=== PATIENT | male | born 1930 ===

== ENCOUNTER 2018-08-25 21:13 | Emergency (ER) | payer SELFPAY ==
[2018-08-25 21:38] VITALS: BP 133/77
--- NOTE | 2018-08-25 22:06 | ER Document Report ---
ED Medical Screen (RME) - General Chief Complaint: Arm Problem Stated Complaint: RIGHT ARM TWITCH AND MOVEMENT Time Seen by Provider: 08/25/18 22:00 Notes: 87-year-old male coming in today because his is noticed that he has been rubbing his right arm over the past couple of days. 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 He is a poor historian secondary to his history of dementia. I have treated and performed a rapid initial assessment of this patient. A comprehensive ED assessment and evaluation of the patient, analysis of test results and completion of medical decision making process will be conducted by additional ED providers. PHYSICAL EXAMINATION: GENERAL: Well-appearing, well-nourished and in no acute distress. A&Ox4. Answers questions appropriately. LUNGS: Breath sounds clear to auscultation bilaterally and equal. No wheezes rales or rhonchi. HEART: Regular rate and rhythm without murmurs, rubs, gallops. ABDOMEN: Soft, nondistended abdomen. No guarding, no rebound. Normal bowel sounds present. No CVA tenderness bilaterally. + mild epigastric tenderness (cannot elicit thorough abd exam w/o table, however). Extremities: No cyanosis, clubbing, or edema b/l. NEUROLOGICAL: Normal speech, normal gait. PSYCH: Normal mood, normal affect. TRAVEL OUTSIDE OF THE [place] IN LAST 30 DAYS: No Physical Exam - Vital signs Vitals: Temp Pulse Resp BP Pulse Ox 98.5 F 86 16 133/77 H 98 08/25/18 21:36 08/25/18 21:36 08/25/18 21:36 08/25/18 21:36 08/25/18 21:36 Course - Vital Signs Vital signs: Temp Pulse Resp BP Pulse Ox 98.5 F 86 16 133/77 H 98 08/25/18 21:36 08/25/18 21:36 08/25/18 21:36 08/25/18 21:36 08/25/18 21:36
[2018-08-25 22:39] LABS: ABSOLUTE BASOPHILS # (AUTO) 0.1 10^3/uL (0.0-0.2); ABSOLUTE EOSINOPHILS # (AUTO) 0.1 10^3/uL (0.0-0.6); ABSOLUTE LYMPHOCYTES (AUTO) 1.3 10^3/uL (0.5-4.7); ABSOLUTE MONOCYTES (AUTO) 0.7 10^3/uL (0.1-1.4); ABSOLUTE NEUT (AUTO) 4.5 10^3/uL (1.7-8.2); BASOPHILS % (AUTO) 0.8 % (0-2); EOSINOPHILS % (AUTO) 1.2 % (0-6); HEMATOCRIT 39.7 % (37.9-51.0); HEMOGLOBIN 14.1 g/dL (13.5-17.0); LYMPHOCYTES % (AUTO) 20.2 % (13-45); MEAN CORPUSCULAR HEMOGLOBIN 31.6 pg (27.0-33.4); MEAN CORPUSCULAR HGB CONC 35.5 g/dL (32.0-36.0); MEAN CORPUSCULAR VOLUME 89 fl (80-97); MONOCYTES % (AUTO) 10.6 % (3-13); PLATELET COUNT 139 10^3/uL (150-450); RED BLOOD COUNT 4.46 10^6/uL (4.35-5.55); RED CELL DISTRIBUTION WIDTH 13.7 % (11.5-14.0); SEGMENTED NEUTROPHILS % (AUTO) 67.2 % (42-78); TOTAL CELLS COUNTED % (AUTO) 100 %; WHITE BLOOD COUNT 6.7 10^3/uL (4.0-10.5)
[2018-08-25 23:07] LABS: ALANINE AMINOTRANSFERASE 19 U/L (21-72); ALBUMIN 4.5 g/dL (3.5-5.0); ALKALINE PHOSPHATASE 93 U/L (38-126); ANION GAP 9 (5-19); ASPARTATE AMINO TRANSFERASE 25 U/L (17-59); BILIRUBIN,DIRECT 0.1 mg/dL (0.0-0.4); BILIRUBIN,TOTAL 1.1 mg/dL (0.2-1.3); BLOOD UREA NITROGEN 29 mg/dL (7-20); CALCIUM 9.2 mg/dL (8.4-10.2); CARBON DIOXIDE 34 mmol/L (22-30); CHLORIDE 101 mmol/L (98-107); GLUCOSE 104 mg/dL (75-110); POTASSIUM 3.3 mmol/L (3.6-5.0); SODIUM 143.8 mmol/L (137-145); TOTAL PROTEIN 6.7 g/dL (6.3-8.2)
== END 2018-08-26 07:16 | disposition left against medical advice (07) ==
LOC: ER 21:13
DX: F03.90 Unspecified dementia, unspecified severity, without behavioral disturbance, psychotic disturbance, mood disturbance, and anxiety (principal); Z86.718 Personal history of other venous thrombosis and embolism
CPT/HCPCS: 36415; 80053; 85025; 99281; 99283

== ENCOUNTER 2018-12-27 16:12 | Emergency (ER) | payer MEDICARE ==
--- NOTE | 2018-12-27 17:50 | ER Document Report ---
ED Medical Screen (RME) - General Chief Complaint: Flank Pain Stated Complaint: BODY PAIN Time Seen by Provider: 12/27/18 17:41 TRAVEL OUTSIDE OF THE [place] IN LAST 30 DAYS: No - HPI Notes: 12/27/18 17:47 Patient is an 88-year-old male with a history of [place], valve replacement, hypertension, Alzheimer's who presents with family complaining of right flank/right low back pain that is been present for about a week. Patient has never had pain in this area before. He is eating and drinking without difficulty. He is urinating normally and having normal bowel movements. Pain is primarily with movement. Denies drug allergies. No surgical history to his back or history of spinal abscess. No known injury. Denies CASTILLO, fever, neck pain, URI, CP, SOB, Abd pain, dysuria, urinary retention, loss control ros wel/bladder, saddle anesthesia, muscle paralysis/weakness, or rash. Pt does not want any tylenol at this time. I have treated and performed a rapid initial assessment of this patient. A comprehensive ED assessment and evaluation of the patient, analysis of test results and completion of medical decision making process will be conducted by additional ED providers. PHYSICAL EXAMINATION: GENERAL: Well-appearing, well-nourished and in no acute distress. A&O. Answers questions appropriately. LUNGS: Breath sounds clear to auscultation bilaterally and equal. No wheezes rales or rhonchi. HEART: Regular rate and rhythm, click audible Back: + tenderness Rt low back near flank. FROM. Strength intact. No foot drop. Difficult to adequately assess in WC. PSYCH: Normal mood, normal affect. - Related Data Allergies/Adverse Reactions: No Known Allergies Allergy (Verified 08/25/18 22:07) Past Medical History - Social History Chew tobacco use (# tins/day): No Frequency of alcohol use: None Drug Abuse: None Renal/ Medical History: Denies: Hx Peritoneal Dialysis
[2018-12-27 18:17] LABS: ABSOLUTE EOSINOPHILS # (AUTO) 0.1 10^3/uL (0.0-0.6); ABSOLUTE LYMPHOCYTES (AUTO) 1.2 10^3/uL (0.5-4.7); ABSOLUTE MONOCYTES (AUTO) 0.6 10^3/uL (0.1-1.4); BASOPHILS % (AUTO) 0.5 % (0-2); EOSINOPHILS % (AUTO) 1.4 % (0-6); HEMATOCRIT 38.1 % (37.9-51.0); HEMOGLOBIN 13.4 g/dL (13.5-17.0); LYMPHOCYTES % (AUTO) 17.4 % (13-45); MEAN CORPUSCULAR HEMOGLOBIN 31.3 pg (27.0-33.4); MEAN CORPUSCULAR HGB CONC 35.3 g/dL (32.0-36.0); MEAN CORPUSCULAR VOLUME 89 fl (80-97); MONOCYTES % (AUTO) 8.6 % (3-13); PLATELET COUNT 132 10^3/uL (150-450); RED CELL DISTRIBUTION WIDTH 13.7 % (11.5-14.0); SEGMENTED NEUTROPHILS % (AUTO) 72.1 % (42-78); TOTAL CELLS COUNTED % (AUTO) 100 %; WHITE BLOOD COUNT 6.9 10^3/uL (4.0-10.5)
--- NOTE | 2018-12-27 18:28 | RADIOLOGY REPORT (SQ) ---
EXAM DESCRIPTION: L SPINE WHOLE COMPLETED DATE/TIME: 12/27/2018 6:18 pm REASON FOR STUDY: Rt low back pain COMPARISON: None. NUMBER OF VIEWS: Five views including obliques. TECHNIQUE: AP, lateral, oblique, and sacral radiographic images acquired of the lumbar spine. LIMITATIONS: None. FINDINGS: MINERALIZATION: Normal. SEGMENTATION: Normal. No transitional anatomy. ALIGNMENT: Grade 1 anterolisthesis of L4 on L5. VERTEBRAE: Anterior wedge deformities of T12 and L1. DISCS: Multilevel disc space narrowing with osteophytes. Prominent anterior sclerosis at L1-L2. POSTERIOR ELEMENTS: Pedicles and facets are intact. No pars defect or posterior arch defects. Facet arthropathy is present. HARDWARE: None in the spine. PARASPINAL SOFT TISSUES: Normal. PELVIS: Intact as visualized. No fractures or worrisome bone lesions. SI joints intact. OTHER: No other significant finding. IMPRESSION: MULTILEVEL CHRONIC DEGENERATIVE CHANGES. GRADE 1 ANTEROLISTHESIS OF L 4 ON L5. ANTERIO R WEDGE DEFORMITIES OF T12 AND L1 ARE PROBABLY OLD. TECHNICAL DOCUMENTATION: JOB ID: [id number]- All Rights Reserved Reading location - IP/workstation name: [email or web address]
[2018-12-27 18:36] LABS: ANION GAP 9 (5-19); BLOOD UREA NITROGEN 26 mg/dL (7-20); CALCIUM 9.3 mg/dL (8.4-10.2); CARBON DIOXIDE 33 mmol/L (22-30); CHLORIDE 98 mmol/L (98-107); GLUCOSE 104 mg/dL (75-110); POTASSIUM 3.7 mmol/L (3.6-5.0); SODIUM 139.7 mmol/L (137-145)
--- NOTE | 2018-12-27 21:38 | RADIOLOGY REPORT (SQ) ---
EXAM DESCRIPTION: CT ABDOMEN PELVIS WITHOUT IV CONTRAST COMPLETED DATE/TME: 12/27/2018 20:43 CLINICAL HISTORY: 88 years Male right flank, mid back pain.Please comment on spine. COMPARISON: None. TECHNIQUE: Contiguous axial images obtained through the abdomen and pelvis without IV contrast. Reformatted images obtained. This exam was performed according to our department optimization program which includes automated exposure control, adjustment of the mA and/or kv according to patient size and/or use of iterative reconstruction technique. FINDINGS: Low-attenuation lesion in the dome of the liver consistent with a small cyst measuring 1.2 cm. The spleen and pancreas appear unremarkable. No adrenal masses. The kidneys appear unremarkable. No hydronephrosis. The gallbladder is present with gallstones noted. No surrounding inflammatory changes are seen. No aneurysmal dilatation of the aorta. No bowel obstruction. The appendix is unremarkable. No significant free fluid noted. Multilevel degenerative change in the thoracic and the lumbar spine. Grade 1 anterolisthesis of L4 on L5. Recommend endplate changes at L1 and L2. Moderate compression at T11 and T12 which are age indeterminant. No surrounding inflammatory changes are present. IMPRESSION: Compression fractures at T11 and T12 which are age indeterminant No additional evidence of acute process Cholelithiasis
[2018-12-27] MEDS ORDERED: LIDOCAINE 5% (700 MG) TRANSDERMAL ADH..PATCH TP ONE (23:07)
[2018-12-27] MEDS ORDERED: ACETAMINOPHEN 325 MG TABLET PO ONE (23:07)
--- NOTE | 2018-12-27 23:09 | ER Document Report ---
ED General - General Chief Complaint: Flank Pain Stated Complaint: BODY PAIN Time Seen by Provider: 12/27/18 17:41 Cannot obtain history due to: Dementia Notes: Patient is an 88-year-old male with past medical history of dementia who presents with right low back pain. Patient is a very poor historian, at bedside does provide majority of history. Patient states that the pain is a throbbing, aching, constant discomfort to his right mid and low back. Symptoms have been ongoing for at least the past several weeks, not new or different today. Went to a chiropractor and was told that he needed to be sure that he did not have a "kidney problem" prior to receiving an adjustment. Has not seen his primary care doctor regarding today's concerns. Denies any urinary retention, bowel or bladder incontinence, inability to ambulate, focal weakness or numbness. No falls or injuries to the back. Denies history of similar symptoms in the past. TRAVEL OUTSIDE OF THE [place] IN LAST 30 DAYS: No - Related Data Allergies/Adverse Reactions: No Known Allergies Allergy (Verified 08/25/18 22:07) Past Medical History - General Information source: Patient, Relative - Social History Smoking Status: Never Smoker Chew tobacco use (# tins/day): No Frequency of alcohol use: None Drug Abuse: None Lives with: Spouse/Significant other Family History: Reviewed & Not Pertinent Patient has suicidal ideation: No Patient has homicidal ideation: No Renal/ Medical History: Denies: Hx Peritoneal Dialysis Review of Systems - Review of Systems Notes: Constitutional: Negative for fever. HENT: Negative for sore throat. Eyes: Negative for visual changes. Cardiovascular: Negative for chest pain. Respiratory: Negative for shortness of breath. Gastrointestinal: Negative for abdominal pain, vomiting or diarrhea. Genitourinary: Negative for dysuria. Musculoskeletal: Positive for right low and mid back pain Skin: Negative for rash. Neurological: Negative for headaches, weakness or numbness. 10 point ROS negative except as marked above and in HPI. Physical Exam - Vital signs Vitals: Temp Pulse Resp BP Pulse Ox 98.7 F 84 16 146/88 H 100 12/27/18 17:58 12/27/18 17:58 12/27/18 17:58 12/27/18 17:58 12/27/18 17:58 Interpretation: Normal Notes: PHYSICAL EXAMINATION: GENERAL: Well-appearing, well-nourished and in no acute distress. HEAD: Atraumatic, normocephalic. EYES: Pupils equal round and reactive to light, extraocular movements intact, sclera anicteric, conjunctiva are normal. ENT: nares patent, oropharynx clear without exudates. Moist mucous membranes. NECK: Normal range of motion, supple without lymphadenopathy LUNGS: Breath sounds clear to auscultation bilaterally and equal. No wheezes rales or rhonchi. HEART: Regular rate and rhythm without murmurs ABDOMEN: Soft, nontender, normoactive bowel sounds. No guarding, no rebound. No masses appreciated. EXTREMITIES: Normal range of motion, no pitting or edema. No cyanosis. Back: Slight tenderness to palpation of the low thoracic spine and kinsey-spinous muscles on the right. NEUROLOGICAL: 5 out of 5 strength both distally and proximally bilateral lower extremities. 2+ patellar reflexes bilaterally. No clonus. Sensation grossly intact in the bilateral lower extremities. Patient is able to ambulate without difficulty. PSYCH: Normal mood, normal affect. SKIN: Warm, Dry, normal turgor, no rashes or lesions noted. Course - Re-evaluation Re-evalutation: 12/27/18 23:09 Patient presents with 24 to 48 hours of right flank and right mid back pain. At the time of my evaluation does not have significant complaints of pain. Does have some point tenderness over the low thoracic spine as well as the right flank. Abdominal exam is benign. No red flag symptoms of low back pain. CT s can abdomen pelvis does not demonstrate any evidence of nephrolithiasis or aortic pathology. Does demonstrate age-indeterminate compression fractures of the low thoracic spine which may be contributing to the patient's pain. No focal neurologic deficits on exam. Patellar and ankle reflexes intact. At this time will discharge with return precautions and follow-up recommendations. Verbal discharge instructions given a the bedside and opportunity for questions given. Medication warnings reviewed. Patient is in agreement with this plan and has verbalized understanding of return precautions and the need for primary care follow-up in the next 24-72 hours. - Vital Signs Vital signs: Temp Pulse Resp BP Pulse Ox 98.0 F 64 20 140/85 H 99 12/27/18 23:16 12/27/18 23:16 12/27/18 23:16 12/27/18 23:16 12/27/18 23:16 - Laboratory Result Diagrams: 12/27/18 18:00 12/27/18 18:00 Laboratory results interpreted by me: 12/27/18 12/27/18 18:00 18:00 RBC 4.30 L Hgb 13.4 L Plt Count 132 L Carbon Dioxide 33 H BUN 26 H - Diagnostic Test Radiology reviewed: Reports reviewed Discharge - Discharge Clinical Impression: Mid back pain on right side Compression fx, thoracic spine Qualifiers: Encounter type: initial encounter Thoracic vertebra fracture level: unspecified thoracic vertebra Qualified Code(s): S22.000A - Wedge compression fracture of unspecified thoracic vertebra, initial encounter for closed fracture Condition: Good Disposition: HOME, SELF-CARE Additional Instructions: You were seen today for right mid and lower back pain. The images show that you do have some compression fractures of your thoracic spine that are likely contributing to your pain. Take Tylenol 1000 mg every 6 hours as needed for pain. Use the topical Voltaren gel as prescribed as needed for pain. Return if you develop weakness, numbness, inability to walk, urinary retention, incontinence, or any other symptoms that are worrisome to you. Please follow-up with your primary care physician within the next 24 to 48 hours. Prescriptions: Diclofenac Sodium [Voltaren] 100 gm TP TID PRN #100 gel..gm. PRN Reason:
[2018-12-27 23:17] VITALS: BP 140/85
== END 2018-12-27 23:41 | disposition home or self-care (01) ==
LOC: ER 16:12
DX: S22.000A Wedge compression fracture of unspecified thoracic vertebra, initial encounter for closed fracture (principal); R10.9 Unspecified abdominal pain; M79.10 Myalgia, unspecified site; X58.XXXA Exposure to other specified factors, initial encounter
CPT/HCPCS: 99284; 36415; 85025; 80048; 72110; 74176; A9270